=== PATIENT | female | born 1960 | race Caucasian/White ===

== ENCOUNTER 2016-10-03 21:24 | Emergency (ER) | payer OTHER ==
--- NOTE | 2016-10-06 07:42 | ER ---
ADMIT: 10/03/2016 RM/LOC: ER [facility] MR#: [id number] [address] [facility] [address] [place], [place] [id number] JOSE CONTEH [address] [facility] [address] [place] [address] Emergency Room Report SEX: F AGE: 56 : 1960 DATE: 10/03/2016 TIME: 2124 hours. Please refer to my T-sheet for complete H and P. HISTORY OF PRESENT ILLNESS: Briefly, the patient is a 56-year-old, who comes in, she was at the [employer] game, she had been eating some popcorn, they had eaten a big meal, felt a little bit nauseous and then she actually passed out. She had no chest pain. She felt fine. When she woke up, did not bite her tongue, did not lose control over bowel or bladder. She now feels a little bit tired, but really no complaints. She has never done this before. PHYSICAL EXAMINATION: VITAL SIGNS: Blood pressure 104/70, pulse 78, respirations 12, temp 96.9, sat 96%. GENERAL: No acute distress. HEENT: Grossly normal. LUNGS: Clear. HEART: Regular. ABDOMEN: Soft. SKIN: No rash. NEURO: Alert and oriented, nonfocal. EMERGENCY DEPARTMENT COURSE: EKG was sinus rhythm, rate 76, no changes. CBC normal. Chemistries normal except potassium 3.6, glucose 109, creatinine 1.2. Troponin negative. We gave her a full liter of normal saline bolus. Orthostatic blood pressures were normal. She felt much better. I did give her an option of using 48-hour Holter, she would rather not, she would rather follow up with Dr. Ritchie in [place] in the short term. I thought that was reasonable. I talked to her significant other. She was ready for discharge. ASSESSMENT: 1. Syncopal episode. 2. Nausea, less likely vasovagal from being at the game and having eaten a lot and eating some popcorn. PLAN: Fluids, return if worse, follow up with Dr. Ritchie in Wednesday to recheck. Juan De Jesus MD/ ibisl JOB #: [id number] CC: Librado Armendariz MD, Attending Physician Kingston Ro MD, Family Physician
== END 2016-10-03 23:20 | disposition home or self-care (01) ==
LOC: ER 21:24
DX: R55 Syncope and collapse (principal); R11.0 Nausea; I10 Essential (primary) hypertension; F41.9 Anxiety disorder, unspecified; Z88.2 Allergy status to sulfonamides; Z79.899 Other long term (current) drug therapy